=== PATIENT | female | born 1955 | race Caucasian/White ===

== ENCOUNTER → 2017-01-04 | Outpatient (CLI) | payer OTHER ==
--- NOTE | 2017-01-04 11:05 | RADIOLOGY REPORT PS360 ---
EXAM: LUMBAR SPINE 5 VIEWS HISTORY: LUMBAR PAIN W/RADICULOPATHY AFFECTING BILAT EXTREMITIES ORDERING PHYSICIAN: January MURRAY PATIENT AGE: 61 years COMPARISON: None FINDINGS: There is multilevel degenerative disc disease from T12 to S1 with endplate osteophytes and minimal retrolisthesis of L1, L2, and L3. No fracture or dislocation. No lytic or blastic change. Mild facet arthritic changes L5-S1. Incidental 3 mm stone noted over the upper pole of the right kidney. Incidental vascular calcification. IMPRESSION: 1. Spondylosis of the lumbar spine as detailed above 2. Right nephrolithiasis.
== END ==
LOC: RAD 09:44
DX: M54.5 Low back pain (principal); M54.17 Radiculopathy, lumbosacral region